=== PATIENT | male | born 1990 | race American Indian/Alaskan Native ===

== ENCOUNTER 2017-08-30 15:52 | Emergency (ER) | payer SELFPAY ==
[2017-08-30 17:32] VITALS: BP 114/46
[2017-08-30 20:26] LABS: Bilirubin,Urine NEG (Negative); Blood,Urine MOD (Negative); Color,Urine Yellow (Yellow); Mucus,Urine 3+ /HPF; Nitrite,Urine NEG (Negative)
[2017-08-30 20:27] LABS: WBC,Urine > 182.0 /HPF (0.0-6.0)
[2017-08-30] MEDS ORDERED: XYLOCAINE 1% MPF 5 mL INFILTRATI ONE (20:40)
[2017-08-30] MEDS ORDERED: ZITHROMAX PO ONE (20:40)
[2017-08-30] MEDS ORDERED: ROCEPHIN IM ONE (20:40)
--- NOTE | 2017-08-30 20:48 | Emergency Department Report ---
ED Male HPI - General Chief complaint: Urogenital-Male Stated complaint: FLU SYMPTOMS Time Seen by Provider: 08/30/17 20:26 Source: patient Mode of arrival: Ambulatory Limitations: No Limitations - History of Present Illness Initial comments: This is a 27 y.o. male presents with dysuria and discharge for 1 week. Recent exposure to STI. Reports having to wear a diaper to catch discharge. Denies low back pain, suprapubic pain, testicular pain, or testicular swelling. Reports waking up with sweets, cough, and runny nose 2 days ago. He don't feel sick but , mom told him to f/u in ER for flu since it is going around. Denies chest pain , wheezing, SOB, and generalized aches. MD Complaint: penile discharge, dysuria -: week(s) (1) Location: penis Radiation: none Severity: moderate Severity scale (0 -10): 6 Quality: burning (with urination) Consistency: intermittent Improves with: none Worsens with: none new sexual partner discharge (constant, patient is wearing a diaper) - Related Data Sexually active: Yes Allergies Allergy/AdvReac Type Severity Reaction Status Date / Time No Known Allergies Allergy Verified 08/30/17 17:26 ED Review of Systems ROS: Stated complaint: FLU SYMPTOMS Other details as noted in HPI Constitutional: denies: chills, fever ENT: as per HPI. denies: ear pain, throat pain, dental pain, hearing loss, epistaxis, congestion Respiratory: cough. denies: orthopnea, shortness of breath, SOB with exertion, SOB at rest, stridor, wheezing Cardiovascular: denies: chest pain, palpitations Gastrointestinal: denies: abdominal pain, nausea, diarrhea Genitourinary: dysuria, discharge (yellow). denies: urgency, frequency, hematuria, testicular pain, testicular mass Neurological: denies: headache, weakness, paresthesias ED Past Medical Hx - Past Medical History Previous Medical History?: No - Surgical History Past Surgical History?: No - Social History Smoking Status: Current Every Day Smoker Substance Use Type: None ED Physical Exam - General Limitations: No Limitations General appearance: alert, in no apparent distress - ENT ENT exam: Present: normal exam, normal orophraynx, mucous membranes moist, TM's normal bilaterally, normal external ear exam - Respiratory Respiratory exam: Present: normal lung sounds bilaterally. Absent: respiratory distress, wheezes, rales, rhonchi, stridor, chest wall tenderness - Cardiovascular Cardiovascular Exam: Present: regular rate, normal rhythm. Absent: systolic murmur, diastolic murmur, rubs, gallop - GI/Abdominal GI/Abdominal exam: Present: soft, normal bowel sounds - Neurological Exam Neurological exam: Present: alert, oriented X3, normal gait - Skin Skin exam: Present: warm, dry, intact, normal color. Absent: rash ED Course Vital Signs 08/30/17 17:26 Temperature 97.7 F Pulse Rate 66 Respiratory 16 Rate Blood Pressure 114/46 O2 Sat by Pulse 98 Oximetry ED Medical Decision Making - Medical Decision Making This is a 27 y.o. male presents with penile discharge for 1 week. Reports waking up 2 days ago in wet, cough, and runny nose. He is feeling better but concerned about penile discharge. He is wearing a diaper. UA ordered, negative influenza . Treated empirically with rocephin, metronidazole, and azithromycin in ED. Supportive care for URI. F/U with health department or PCP. Critical care attestation.: If time is entered above; I have spent that time in minutes in the direct care of this critically ill patient, excluding procedure time. ED Disposition Clinical Impression: Exposure to STD URI (upper respiratory infection) Qualifiers: URI type: acute nasopharyngitis (common cold) Qualified Code(s): J00 - Acute nasopharyngitis [common cold] Disposition: TO HOME OR SELFCARE Is pt being admited?: No Does the pt Need Aspirin: No Condition: Stable Instructions: Upper Respiratory Infection (ED), Cold Symptoms (ED), Safe Sex ( ED), Chlamydia Infection (ED), Sexually Transmitted Diseases (ED) Additional Instructions: Call hospital in 3-5 days for lab results. If symptoms persist follow up with primary care provider or Health Department. Increase fluid intake. Wash hands frequently to decrease the spread of infection. Take tylenol or ibuprofen to control fever. Follow up with Primary Care Provider if symptoms are not improving. Return to ER if chest pain, fever, abdominal pain, SOB, wheezing, or difficulty breathing. Referrals: JASON MOSQUEDA MD [Staff Physician] - 3-5 Days [facility] [Outside] - 3-5 Days [facility] [Outside] - 3-5 Days [facility] [Outside] - 3-5 Days Time of Disposition: 21:54 Print Language: HEBREW
[2017-08-30] MEDS ORDERED: FLAGYL PO ONE (21:03)
== END 2017-08-30 22:02 | disposition home or self-care (01) ==
LOC: ED 15:52
DX: Z20.2 Contact with and (suspected) exposure to infections with a predominantly sexual mode of transmission (principal); J00 Acute nasopharyngitis [common cold]
CPT/HCPCS: 81001; 87086; 87400; 87591; 96372; 99283; J0696